=== PATIENT | female | born 1960 | race Caucasian/White ===

== ENCOUNTER 2019-06-15 11:40 | Inpatient (IN) | payer MEDICAID, OTHER ==
[~2019-06-15] VITALS: Ht 157.5 cm; Wt 90.5 kg
--- NOTE | 2019-06-15 11:46 | NUR ---
RESERVATIONS AND TICKETING AGENT: EKG DONE IN TRIAGE
--- NOTE | 2019-06-15 13:18 | NUR ---
EGYPTOLOGIST: PT TO ROOM FROM LOBBY
[2019-06-15 13:44] LABS: ALBUMIN 3.8 g/dL (3.4-5.0); ANION GAP 6 mmol/L (5-15); CALCIUM 9.4 mg/dL (8.5-10.1); CHLORIDE 101 mmol/L (98-107)
[2019-06-15 13:49] LABS: ALANINE AMINOTRANSFERASE 42 U/L (12-78); ALKALINE PHOSPHATASE 81 U/L (45-117); BILIRUBIN,TOTAL 0.4 mg/dL (0.2-1.0); CREATININE 0.91 mg/dL (0.55-1.02); TROPONIN I < 0.015 ng/mL (0.000-0.045)
[2019-06-15 13:50] LABS: BASOPHILS # (AUTO) 0.04 x10^3/uL (0-0.1); BASOPHILS % (AUTO) 1 % (0-1); EOSINOPHILS % (AUTO) 4 % (1-7); LYMPHOCYTES % (AUTO) 33 % (22-44); MD NO; MEAN CORPUSCULAR HGB CONC 33.8 g/dL (32.4-35.8); MEAN CORPUSCULAR VOLUME 82.8 fL (80-100); MEAN PLATELET VOLUME 8.6 fL (7.4-10.4); MONOCYTES # (AUTO) 0.41 x10^3/uL (0.2-0.8); MONOCYTES % (AUTO) 8 % (2-9); NEUTROPHILS # (AUTO) 3.03 x10^3/uL (1.8-6.8); NEUTROPHILS % (AUTO) 55 % (42-75); PLATELET COUNT 299 x10^3/uL (130-400)
[2019-06-15] MEDS ORDERED: ASPIRIN 325 MG TABLET PO ONE (16:00)
[2019-06-15] MEDS ORDERED: METO-93 PO (16:18)
[2019-06-15] MEDS ORDERED: ALPR0.5T PO (16:18)
[2019-06-15] MEDS ORDERED: LEVO100T PO (16:18)
[2019-06-15] MEDS ORDERED: METH20TA PO (16:18)
[2019-06-15] MEDS ORDERED: ATOR-2 PO (16:18)
[2019-06-15] MEDS ORDERED: LOSA25TA25 PO (16:18)
[2019-06-15] MEDS ORDERED: HYDR25TA6 PO (16:18)
[2019-06-15] MEDS ORDERED: ASPI-496 PO (16:18)
[2019-06-15] MEDS ORDERED: ASPIRIN 325 MG TABLET ONE (16:28)
--- NOTE | 2019-06-15 16:30 | NUR ---
MEDICATED PER EMAR (325MG OF A[facility]) HOSPITAL BED/DIET ORDERED HOSPITALIST AT BEDSIDE
[2019-06-15 16:46] LABS: MICROSCOPIC NOT IND
[2019-06-15 16:50] LABS: CULTURE INDICATED? NO
[2019-06-15] MEDS ORDERED: NITROGLYCERIN 0.4 MG BOTTLE (25 TABS) SL PRN (17:00)
[2019-06-15] MEDS ORDERED: ONDANSETRON 2MG/ML, 2ML IVPush PRN (17:00)
[2019-06-15] MEDS ORDERED: hydrALAzine 20 MG/ML, 1ML IVPush PRN (17:00)
[2019-06-15] MEDS ORDERED: morphine SULFATE 10 MG/ML, 1ML IVPush PRN (17:00)
[2019-06-15] MEDS ORDERED: TEMAZEPAM 15 MG CAPSULE PO PRN (17:00)
[2019-06-15] MEDS ORDERED: ACETAMINOPHEN 325 MG TABLET PO PRN (17:00)
--- NOTE | 2019-06-15 17:00 | NUR ---
report to Willard MURRAY
--- NOTE | 2019-06-15 17:56 | NUR ---
PT RESTING, VERBALIZED NO NEEDS AT THIS TIME.
--- NOTE | 2019-06-15 18:01 | NUR ---
PT ON HOSPITAL BED FOR COMFORT.
[2019-06-15 19:11] LABS: TROPONIN I < 0.015 ng/mL (0.000-0.045)
--- NOTE | 2019-06-15 19:37 | NUR ---
PT UP TO RR WITH STANDBY ASSIST, TOLERATED TRANSFER WELL
[2019-06-15] MEDS: SODIUM CHLORIDE 0.9% 1,000 ML IV SCH (19:42)
[2019-06-15] MEDS ORDERED: ENOXAPARIN 40 MG/0.4 ML ONE (20:23)
[2019-06-15] MEDS ORDERED: OMNIPAQUE 350 MG/ML, 100ML BOTTLE ONE (20:32)
--- NOTE | 2019-06-15 20:33 | NUR ---
PT TO CT
--- NOTE | 2019-06-15 20:50 | NUR ---
PT RESTING IN BED, SPOUSE AT BEDSIDE ,MONITORS IN PLACE, MEDICATED PER MAR. AWAITING ROOM FOR ADMIT
[2019-06-15] MEDS ORDERED: METH-438 PO (20:51)
[2019-06-15] MEDS ORDERED: METOPROLOL SUCCINATE 50 MG TAB.ER.24H PO SCH (21:00)
[2019-06-15] MEDS ORDERED: ENOXAPARIN 40 MG/0.4 ML SQ SCH (21:00)
[2019-06-15] MEDS ORDERED: ASPIRIN 81 MG TABLET EC PO SCH (21:00)
--- NOTE | 2019-06-15 21:10 | NUR ---
PT UP TO RR WITH SPOUSE AT HER SIDE, STEADY GAIT NOTED. PT NOW RESTING IN BED, MONITORS REAPPLIED, CALL LIGHT WITHIN REACH.
--- NOTE | 2019-06-15 21:45 | NUR ---
PT RESTING CALMLY, PROVIDED PT WITH XTRA PILLOW PER HER REQUEST, DENIES FURTHER NEEDS, CALL LIGHT WITHIN REACH
--- NOTE | 2019-06-15 22:45 | NUR ---
PT RESTING IN BED, NAD, ENIES NEEDS, CALL LIGHT WITHIN REACH
[2019-06-16] MEDS: SODIUM CHLORIDE 0.9% 1,000 ML IV SCH ×3 (00:49→16:49)
[2019-06-16 01:23] LABS: TROPONIN I < 0.015 ng/mL (0.000-0.045)
[2019-06-16 01:39] VITALS: BP 133/88
[2019-06-16 02:00] VITALS: BP 133/88
[2019-06-16 05:41] LABS: CHLORIDE 105 mmol/L (98-107); MD YES; MEAN CORPUSCULAR HEMOGLOBIN 28.1 pg (27.0-34.8); MEAN CORPUSCULAR HGB CONC 34.1 g/dL (32.4-35.8); MEAN CORPUSCULAR VOLUME 82.4 fL (80-100); PLATELET COUNT 235 x10^3/uL (130-400)
[2019-06-16 05:54] LABS: ALANINE AMINOTRANSFERASE 38 U/L (12-78); ALBUMIN 3.2 g/dL (3.4-5.0); ALKALINE PHOSPHATASE 68 U/L (45-117); ANION GAP 8 mmol/L (5-15); BAND#(MANUAL) 0.08 x10^3/uL; BANDS%(MANUAL) 1 % (0-7); BILIRUBIN,TOTAL 0.5 mg/dL (0.2-1.0); CALCIUM 8.7 mg/dL (8.5-10.1); CHOLESTEROL, TOTAL 174 mg/dL (140-239); CREATININE 0.91 mg/dL (0.55-1.02); EOS#(MANUAL) 0.08 x10^3/uL (0.0-0.4); EOS% (MANUAL) 1 % (1-7); HDL CHOL % 25 % (28-40); HDL CHOLESTEROL (DIRECT) 44 mg/dL (40-60); LDL CHOLESTEROL,CALCULATED 95 mg/dL (54-169); LDL/HDL RATIO 2.2 (0.5-3.0); LYMPH#(MANUAL) 1.73 x10^3/uL (1-3.4); LYMPHS% (MANUAL) 23 % (22-44); MONOS#(MANUAL) 0.38 x10^3/uL (0.3-2.7); MONOS% (MANUAL) 5 % (2-9); SEG#(MANUAL) 5.25 x10^3/uL (1.8-6.8); SEGS% (MANUAL) 70 % (42-75); TOTAL PROTEIN 6.8 g/dL (6.4-8.2); TRIGLYCERIDES 173 mg/dL (50-200); VLDL CHOLESTEROL 35 mg/dL (0-25)
[2019-06-16 05:55] LABS: <PLATELET ESTIMATE> ADEQUATE; <PLT MORPHOLOGY> NORMAL PLT MORPH; <RBC MORPHOLOGY> NORMAL
[2019-06-16] MEDS ORDERED: LEVOTHYROXINE 100 MCG TABLET PO SCH (06:00)
[2019-06-16 07:24] VITALS: BP 126/74
[2019-06-16] MEDS ORDERED: ATORVASTATIN 10 MG TABLET PO SCH (09:00)
[2019-06-16] MEDS ORDERED: LOSARTAN 25MG TABLET PO SCH (09:00)
[2019-06-16] MEDS ORDERED: REGADENOSON 0.4 MG/5 ML SYRINGE ONE (13:17)
[2019-06-16 14:50] VITALS: BP 121/83
== END 2019-06-16 18:07 | disposition home or self-care (01) | DRG 313 ==
LOC: ED 15:17 → EDIP 15:23 → SUATTDRO 16:23 → 5SO 06-16 00:11
PROVIDERS: ADMIT Internal Medicine; ATTEND Family Medicine
DX: R07.89 Other chest pain (principal); E66.01 Morbid (severe) obesity due to excess calories; E03.9 Hypothyroidism, unspecified; E78.5 Hyperlipidemia, unspecified; F41.9 Anxiety disorder, unspecified; F98.8 Other specified behavioral and emotional disorders with onset usually occurring in childhood and adolescence; I11.9 Hypertensive heart disease without heart failure; Z68.35 Body mass index [BMI] 35.0-35.9, adult; Z79.82 Long term (current) use of aspirin; Z82.49 Family history of ischemic heart disease and other diseases of the circulatory system; Z90.49 Acquired absence of other specified parts of digestive tract
CPT/HCPCS: 36415; 71046; 71275; 78452; 80053; 80061; 81003; 83735; 83880; 84100; 84443; 84484; 85025; 93005; 93017; 93306; 96372; 99285; J1650; J2785; Q9967; A9502; J7030